=== PATIENT | female | born 1985 | race Caucasian/White ===

== ENCOUNTER 2016-05-26 05:53 | Inpatient (IN) | payer MEDICAID ==
[2016-05-26] MEDS ORDERED: Oxytocin 10 Units/1 ML SDV ONE ×2 (06:40→08:02)
[2016-05-26] MEDS ORDERED: Lactated Ringers 1,000 ML IV SCH ×2 (07:00→15:30)
[2016-05-26] MEDS ORDERED: Erythromycin Base 0.5% Ophth Oint 1 GM Tube ONE (07:09)
[2016-05-26] MEDS ORDERED: Naloxone 0.4 MG/ML SDV ONE (07:09)
[2016-05-26] MEDS ORDERED: ceFAZolin 2 GM in Premix Bag 1 BAG IV ONE (07:30)
[2016-05-26] MEDS ORDERED: ePHEDrine 50 MG/ML SDV ONE (08:02)
[2016-05-26] MEDS ORDERED: Lactated Ringers 1,000 ML ONE (08:03)
[2016-05-26] MEDS ORDERED: Ondansetron 4 MG/2 ML SDV IVPUSH PRN (09:07)
[2016-05-26] MEDS ORDERED: Naloxone 0.4 MG/ML SDV IV PRN (09:20)
[2016-05-26] MEDS: HYDROmorphone/Normal Saline 15 MG/30 ML PCA IV PRN (09:48)
[2016-05-26] MEDS: D5 1/2 NS w/ 20 mEq/L KCl 1,000 ML IV SCH ×2 (10:55→19:09)
[2016-05-26] MEDS ORDERED: diphenhydrAMINE 50 MG/ML SDV IVPUSH PRN (12:44)
[2016-05-27] MEDS: HYDROmorphone/Normal Saline 15 MG/30 ML PCA IV PRN (01:37)
[2016-05-27] MEDS: D5 1/2 NS w/ 20 mEq/L KCl 1,000 ML IV SCH (03:14)
--- NOTE | 2016-05-27 05:24 | PCM.SURGPN ---
- General Info Date of Service: 05/27/16 Date of Surgery/Procedure: 05/26/16 POD#: 1 Post-Op Diagnosis: section Admission Diagnosis/Problem: section Functional Status: Reports: pain controlled, tolerating diet, ambulating, urinating (Sewell), incentive spirometry - Review of Systems General: Reports: No Symptoms HEENT: Reports: no symptoms Pulmonary: Reports: no symptoms Cardiovascular: Reports: No Symptoms Gastrointestinal: Reports: Other (Had some nausea yesterday morning, none since. Tolerating clear liquid diet and would like regular food. ) Genitourinary: Reports: no symptoms Musculoskeletal: Reports: no symptoms Skin: Reports: no symptoms Neurological: Reports: No Symptoms Psychiatric: Reports: no symptoms - Patient Data Vitals - most recent: Last Vital Signs Temp 98.4 F 05/27/16 02:09 Pulse 72 05/27/16 02:09 Resp 18 05/27/16 02:09 BP 108/81 05/27/16 02:09 Pulse Ox 96 05/27/16 02:09 Weight - most recent: 189 lb 3.2 oz I&O - last 24 hours: Intake & Output 05/26/16 05/26/16 05/27/16 14:59 22:59 06:59 Intake Total 1429 1334 Output Total 511 851 1397 Balance -300 679 -766 Lab Results last 24 hrs: Laboratory Results - last 24 hr 05/26/16 05/26/16 05/26/16 Range/Units 06:15 06:15 06:15 WBC 5.8 (4.5-11.0) K/uL RBC 4.14 (3.30-5.50) M/uL Hgb 11.7 L (12.0-15.0) g/dL Hct 34.9 L (36.0-48.0) % MCV 84 (80-98) fL MCH 28 (27-31) pg MCHC 34 (32-36) % Plt Count 187 (150-400) K/uL Sodium (140-148) mmol/L Potassium 4.0 (3.6-5.2) mmol/L Chloride (100-108) mmol/L Carbon Dioxide (21-32) mmol/L Anion Gap (5.0-14.0) mmol/L BUN (7-18) mg/dL Creatinine (0.6-1.0) mg/dL Est Cr Clr Drug Dosing mL/min Estimated GFR (MDRD) (>60) Glucose (74-106) mg/dL Calcium (8.5-10.1) mg/dL Blood Type A POSITIVE Gel Antibody Screen Negative 05/26/16 05/27/16 05/27/16 Range/Units 16:05 04:45 04:45 WBC 11.7 H 7.4 (4.5-11.0) K/uL RBC 3.67 3.48 (3.30-5.50) M/uL Hgb 10.2 L 9.6 L (12.0-15.0) g/dL Hct 31.0 L 29.7 L (36.0-48.0) % MCV 85 85 (80-98) fL MCH 28 28 (27-31) pg MCHC 33 32 (32-36) % Plt Count 160 155 (150-400) K/uL Sodium 137 L (140-148) mmol/L Potassium 4.1 (3.6-5.2) mmol/L Chloride 106 (100-108) mmol/L Carbon Dioxide 24 (21-32) mmol/L Anion Gap 11.1 (5.0-14.0) mmol/L BUN 3 L (7-18) mg/dL Creatinine 0.6 (0.6-1.0) mg/dL Est Cr Clr Drug Dosing 124.49 mL/min Estimated GFR (MDRD) > 60 (>60) Glucose 91 (74-106) mg/dL Calcium 7.6 L (8.5-10.1) mg/dL Blood Type Gel Antibody Screen Med Orders - Current: Current Medications Diphenhydramine HCl (Benadryl) 25 - 50 mg IVPUSH Q4H PRN PRN Reason: Itching Last Admin: 05/26/16 13:11 Dose: 50 mg Hydromorphone HCl (Dilaudid Silk Hanger 15 Mg In Ns 30 Ml) 0 mg IV ASDIRECTED PRN; Protocol PRN Reason: SALES AND MARKETING VICE PRESIDENT PAIN CONTROL Last Admin: 05/27/16 01:37 Dose: 15 mg Potassium Chloride/Dextrose/Sod Cl (D5 1/2 Ns W/ 20 Meq/L Kcl) 1,000 mls @ 125 mls/hr IV ASDIRECTED BRIAN Last Admin: 05/27/16 03:14 Dose: 125 mls/hr Naloxone HCl (Narcan) 0.1 mg IV ASDIRECTED PRN PRN Reason: decreased respiratory rate Ondansetron HCl (Zofran) 4 mg IVPUSH Q6H PRN PRN Reason: Nausea/Vomiting Last Admin: 05/26/16 10:30 Dose: 4 mg Discontinued Medications Ephedrine Sulfate (Ephedrine Sulfate) Confirm Administered Dose 50 mg .ROUTE .STK-MED ONE Stop: 05/26/16 08:03 Erythromycin (Erythromycin 0.5% Ophth Oint) Confirm Administered Dose 1 gm .ROUTE .STK-MED ONE Stop: 05/26/16 07:10 Last Admin: 05/26/16 10:21 Dose: Not Given Lactated Ringer's (Ringers, Lactated) 1,000 mls @ 0 mls/hr IV ASDIRECTED BRIAN PRN Reason: KVO Lactated Ringer's (Ringers, Lactated) 1,000 mls @ 999 mls/hr IV ASDIRECTED [facility] Last Admin: 05/26/16 07:07 Dose: 999 mls/hr Cefazolin Sodium/Dextrose 2 gm (/ Premix) 50 mls @ 100 mls/hr IV ONETIME ONE Stop: 05/26/16 07:59 Last Admin: 05/26/16 07:34 Dose: 100 mls/hr Lactated Ringer's (Ringers, Lactated) Confirm Administered Dose 1,000 mls @ as directed .ROUTE .STK-MED ONE Stop: 05/26/16 08:04 Naloxone HCl (Narcan) Confirm Administered Dose 0.4 mg .ROUTE .STK-MED ONE Stop: 05/26/16 07:10 Last Admin: 05/26/16 10:21 Dose: Not Given Oxytocin (Pitocin) Confirm Administered Dose 10 unit .ROUTE .STK-MED ONE Stop: 05/26/16 06:41 Last Admin: 05/26/16 08:32 Dose: 10 unit Oxytocin (Pitocin) Confirm Administered Dose 10 unit .ROUTE .STK-MED ONE Stop: 05/26/16 08:03 Phytonadione (Aquamephyton) Confirm Administered Dose 1 mg .ROUTE .STK-MED ONE Stop: 05/26/16 07:10 Last Admin: 05/26/16 10:21 Dose: Not Given - Exam Wound/Incisions: healing well, no drainage Quality Assessment: urine catheter, DVT prophylaxis General: alert, oriented, cooperative, no acute distress Lungs: Clear to auscultation, Normal respiratory effort Cardiovascular: Regular Rate, Regular Rhythm Abdomen: bowel sounds present, soft, no tenderness, no distension Extremities: no edema Skin: warm, dry, intact Neurological: no new focal deficit Psy/Mental Status: alert, normal affect, normal mood - Problem List & Annotations (1) section SNOMED Code(s): 33675085 - section Status: Acute Current Visit: Yes - Problem List Review Problem List Initiated/Reviewed/Updated: Yes - My Orders Last 24 Hours: Active Orders 24 hr Category Date Time Status Patient Status [ADT] Routine ADT 05/26/16 09:07 Active Ambulate [RC] ASDIRECTED Care 05/26/16 09:07 Active Ambulate [RC] PER UNIT ROUTINE Care 05/26/16 09:07 Active Antiembolic Devices [RC] .Routine Care 05/26/16 09:10 Active Communication Order [RC] ROUTINE Care 05/26/16 09:14 Active DC Sewell Catheter [Urinary Catheter Removal] [RC] Per Care 05/27/16 05:20 Ordered Unit Routine Intake and Output [RC] Q4HR Care 05/26/16 09:09 Active Notify Provider Intake and Out [RC] PRN Care 05/26/16 09:09 Active Notify Provider Vital Signs [RC] PRN Care 05/26/16 09:09 Active Oxygen Therapy [RC] PRN Care 05/26/16 09:07 Active Pulse Oximetry [RC] CONTINUOUS Care 05/26/16 09:10 Active RT Incentive Spirometry [RC] ASDIRECTED Care 05/26/16 06:15 Active Up With Assistance [RC] ASDIRECTED Care 05/26/16 09:07 Active Up to Chair [RC] ASDIRECTED Care 05/26/16 09:07 Active VTE/DVT Education [RC] Click to Edit Care 05/26/16 09:10 Active Vital Signs [RC] PER UNIT ROUTINE Care 05/26/16 09:07 Active Respiratory Care Assess and Treatment [CONS] Routine Cons 05/26/16 09:07 Active Regular Diet [DIET] Diet 05/27/16 Breakfast Ordered D5 1/2 NS w/ 20 mEq/L KCl 1,000 ml Med 05/26/16 09:15 Active IV ASDIRECTED D5 1/2 NS w/ 20 mEq/L KCl 1,000 ml Med 05/27/16 05:30 Ordered IV ASDIRECTED HYDROmorphone/Normal Saline [Dilaudid SALES AND MARKETING VICE PRESIDENT 15 MG in NS Med 05/26/16 09:20 Active 30 ML] 0 mg IV ASDIRECTED PRN Naloxone [Narcan] Med 05/26/16 09:20 Active 0.1 mg IV ASDIRECTED PRN Ondansetron [Zofran] Med 05/26/16 09:07 Active 4 mg IVPUSH Q6H PRN diphenhydrAMINE [Benadryl] Med 05/26/16 12:44 Active 25 - 50 mg IVPUSH Q4H PRN Abdominal Binder [OM.PC] Per Unit Routine Oth 05/26/16 09:08 Ordered DVT/VTE Prophylaxis Reflex [OM.PC] Per Unit Routine Oth 05/26/16 09:10 Ordered SCD [Sequential Compression Device] [OM.PC] Routine Oth 05/26/16 06:15 Ordered Sequential Compression Device [OM.PC] Routine Oth 05/26/16 09:07 Ordered Resuscitation Status Routine Resus Stat 05/26/16 09:07 Ordered Medication Orders Diphenhydramine HCl (Benadryl) 25 - 50 mg IVPUSH Q4H PRN PRN Reason: Itching Last Admin: 05/26/16 13:11 Dose: 50 mg Hydromorphone HCl (Dilaudid Silk Hanger 15 Mg In Ns 30 Ml) 0 mg IV ASDIRECTED PRN; Protocol PRN Reason: SALES AND MARKETING VICE PRESIDENT PAIN CONTROL Last Admin: 05/27/16 01:37 Dose: 15 mg Admin: 05/26/16 09:48 Dose: 15 mg Potassium Chloride/Dextrose/Sod Cl (D5 1/2 Ns W/ 20 Meq/L Kcl) 1,000 mls @ 125 mls/hr IV ASDIRECTED BRIAN Last Admin: 05/27/16 03:14 Dose: 125 mls/hr Infusion: 05/27/16 03:09 Dose: 125 mls/hr Admin: 05/26/16 19:09 Dose: 125 mls/hr Infusion: 05/26/16 18:55 Dose: 125 mls/hr Admin: 05/26/16 10:55 Dose: 125 mls/hr Naloxone HCl (Narcan) 0.1 mg IV ASDIRECTED PRN PRN Reason: decreased respiratory rate Ondansetron HCl (Zofran) 4 mg IVPUSH Q6H PRN PRN Reason: Nausea/Vomiting Last Admin: 05/26/16 10:30 Dose: 4 mg - Assessment Assessment (Free Text/Narrative):: Doing well. Hgb down a little. - Plan Plan (Free Text/Narrative):: D/C Sewell, advance diet, decrease IV rate.
[2016-05-27] MEDS ORDERED: D5 1/2 NS w/ 20 mEq/L KCl 1,000 ML IV SCH (05:30)
--- NOTE | 2016-05-27 08:17 | OR ---
DATE OF PROCEDURE: 05/26/2016 PREOPERATIVE DIAGNOSES: Term , prior section. POSTOPERATIVE DIAGNOSES: Term , prior section, and nuchal cord. PROCEDURE: Repeat section delivering a baby boy with scores of 8 and 9 and with a three vessel cord. HOSPITAL ACCOUNT MANAGER: Katherine Marino CNM. Per [employer]G standards of care guidelines, this procedure requires a assistant professor of life sciences. ANESTHESIA: Subarachnoid block. INDICATIONS: This 30-year-old white female is with her fifth child. The previous four were delivered by section. Her due date is May 30. She is admitted for a repeat section. I counseled her for surgery including risks and alternatives and she gave her informed consent to proceed. DESCRIPTION OF OPERATION: After adequate spinal anesthesia was obtained, a Sewell catheter was placed and a wedge was placed under her right flank. Her abdomen was prepped and draped in the usual sterile fashion. Time-out was held. An incision was made through her existing Pfannenstiel scar. This was carried deep using Bovie cautery to the fascia. The fascia was incised transversely. Upper and lower subfascial flaps were developed. The muscles in the midline were . The peritoneum was elevated and incised. The peritoneal and muscle incisions were made to the length of the flaps using Bovie cautery while protecting underlying structures. The bladder flap was dissected free from the lower uterine segment. A transverse lower uterine segment incision was made releasing normal-appearing amniotic fluid. The child's head was delivered. It was noted that there was a nuchal cord. This was reduced. The child's body was delivered. This was found to be a baby boy, ultimately shown to have scores of 8 and 9. The cord was doubly clamped and divided and Katherine Marino attended to the child. Cord blood was collected. The uterus was delivered up onto the anterior abdominal wall. The placenta was delivered. It appeared to have a 3-vessel cord. Residual membranes were removed. IV Pitocin was given by the anesthesia service and 10 units of Pitocin was directly injected into the uterine body. The transverse lower uterine segment incision was closed with a running locking stitch of #1 Vicryl. A second running locking stitch of #1 Vicryl was placed over the first to further bolster the closure. The retrouterine space was irrigated and suctioned dry. The bladder flap was re-attached up over the lower uterine segment with a running stitch of #1 Vicryl. The serosa was disrupted a little which was then repaired with #1 Vicryl with a horizontal mattress stitch. The uterus was then delivered back into the abdominal cavity. The muscles and peritoneum in the midline were closed with a running stitch of #2 Vicryl. The incision was irrigated and suctioned dry. The fascia was closed with a #2 Vicryl running stitch. The incision was again irrigated and suctioned dry. Vicryl 4-0 was used in a subcuticular stitch to approximate the skin. Dermabond was applied. The patient tolerated the procedure well, was brought from the operating room in good condition. Albert Thomas MD /[id number] MTDD
[2016-05-27] MEDS ORDERED: Ondansetron 4 MG Tab.DIS PO PRN (09:16)
[2016-05-27] MEDS ORDERED: Ibuprofen 600 MG Tab PO PRN (09:18)
[2016-05-27] MEDS: Acetaminophen/HYDROcodone 325-5 MG Tab PO PRN ×4 (09:33→21:34)
[2016-05-27] MEDS: Docusate Sodium 100 MG Cap PO PRN (13:55)
[2016-05-28] MEDS: Acetaminophen/HYDROcodone 325-5 MG Tab PO PRN ×4 (02:10→14:46)
--- NOTE | 2016-05-28 10:29 | PCM.SURGPN ---
- General Info Date of Service: 05/28/16 Date of Surgery/Procedure: 05/26/16 POD#: 2 Post-Op Diagnosis: section Admission Diagnosis/Problem: section Functional Status: Reports: pain controlled, tolerating diet, ambulating, urinating, incentive spirometry - Review of Systems General: Reports: No Symptoms HEENT: Reports: no symptoms Pulmonary: Reports: no symptoms Cardiovascular: Reports: No Symptoms Gastrointestinal: Reports: No symptoms. Denies: Flatus, Nausea, Vomiting Genitourinary: Reports: no symptoms Musculoskeletal: Reports: no symptoms Skin: Reports: no symptoms Neurological: Reports: No Symptoms Psychiatric: Reports: no symptoms - Patient Data Vitals - most recent: Last Vital Signs Temp 97.5 F 05/28/16 02:17 Pulse 79 05/28/16 02:17 Resp 20 05/28/16 02:17 BP 97/67 05/28/16 02:17 Pulse Ox 98 05/27/16 17:26 Weight - most recent: 189 lb 3.2 oz I&O - last 24 hours: Intake & Output 05/27/16 05/28/16 05/28/16 22:59 06:59 14:59 Intake Total 600 Output Total 900 Balance -900 600 Lab Results last 24 hrs: Laboratory Results - last 24 hr 05/28/16 Range/Units 05:11 WBC 6.6 (4.5-11.0) K/uL RBC 3.43 (3.30-5.50) M/uL Hgb 9.7 L (12.0-15.0) g/dL Hct 29.4 L (36.0-48.0) % MCV 86 (80-98) fL MCH 28 (27-31) pg MCHC 33 (32-36) % Plt Count 170 (150-400) K/uL Med Orders - Current: Current Medications Hydrocodone Bitart/Acetaminophen ([place] 325-5 Mg) 1 - 2 tab PO Q4H PRN PRN Reason: Pain Last Admin: 05/28/16 10:15 Dose: 2 tab Diphenhydramine HCl (Benadryl) 25 - 50 mg IVPUSH Q4H PRN PRN Reason: Itching Last Admin: 05/26/16 13:11 Dose: 50 mg Docusate Sodium (Colace) 100 mg PO BID PRN PRN Reason: Constipation Last Admin: 05/27/16 13:55 Dose: 100 mg Ibuprofen (Motrin) 600 mg PO Q6H PRN PRN Reason: Pain Last Admin: 05/27/16 15:17 Dose: 600 mg Ondansetron HCl (Zofran) 4 mg IVPUSH Q6H PRN PRN Reason: Nausea/Vomiting Last Admin: 05/26/16 10:30 Dose: 4 mg Ondansetron HCl (Zofran Odt) 4 mg PO Q4H PRN PRN Reason: Nausea/Vomiting Discontinued Medications Ephedrine Sulfate (Ephedrine Sulfate) Confirm Administered Dose 50 mg .ROUTE .STK-MED ONE Stop: 05/26/16 08:03 Erythromycin (Erythromycin 0.5% Ophth Oint) Confirm Administered Dose 1 gm .ROUTE .STK-MED ONE Stop: 05/26/16 07:10 Last Admin: 05/26/16 10:21 Dose: Not Given Hydromorphone HCl (Dilaudid Gearcase Assembler 15 Mg In Ns 30 Ml) 0 mg IV ASDIRECTED PRN; Protocol PRN Reason: CONTACT LENS BLOCKER PAIN CONTROL Last Admin: 05/27/16 01:37 Dose: 15 mg Lactated Ringer's (Ringers, Lactated) 1,000 mls @ 0 mls/hr IV ASDIRECTED [facility] PRN Reason: KVO Lactated Ringer's (Ringers, Lactated) 1,000 mls @ 999 mls/hr IV ASDIRECTED [facility] Last Admin: 05/26/16 07:07 Dose: 999 mls/hr Cefazolin Sodium/Dextrose 2 gm (/ Premix) 50 mls @ 100 mls/hr IV ONETIME ONE Stop: 05/26/16 07:59 Last Admin: 05/26/16 07:34 Dose: 100 mls/hr Lactated Ringer's (Ringers, Lactated) Confirm Administered Dose 1,000 mls @ as directed .ROUTE .ST-MED ONE Stop: 05/26/16 08:04 Potassium Chloride/Dextrose/Sod Cl (D5 1/2 Ns W/ 20 Meq/L Kcl) 1,000 mls @ 125 mls/hr IV ASDIRECTED [facility] Last Admin: 05/27/16 03:14 Dose: 125 mls/hr Potassium Chloride/Dextrose/Sod Cl (D5 1/2 Ns W/ 20 Meq/L Kcl) 1,000 mls @ 50 mls/hr IV ASDIRECTED BRIAN Naloxone HCl (Narcan) Confirm Administered Dose 0.4 mg .ROUTE .STK-MED ONE Stop: 05/26/16 07:10 Last Admin: 05/26/16 10:21 Dose: Not Given Naloxone HCl (Narcan) 0.1 mg IV ASDIRECTED PRN PRN Reason: decreased respiratory rate Oxytocin (Pitocin) Confirm Administered Dose 10 unit .ROUTE .STK-MED ONE Stop: 05/26/16 06:41 Last Admin: 05/26/16 08:32 Dose: 10 unit Oxytocin (Pitocin) Confirm Administered Dose 10 unit .ROUTE .STK-MED ONE Stop: 05/26/16 08:03 Phytonadione (Aquamephyton) Confirm Administered Dose 1 mg .ROUTE .STK-MED ONE Stop: 05/26/16 07:10 Last Admin: 05/26/16 10:21 Dose: Not Given - Exam Wound/Incisions: healing well, no drainage General: alert, oriented, cooperative, no acute distress Lungs: Clear to auscultation, Normal respiratory effort Cardiovascular: Regular Rate, Regular Rhythm Abdomen: bowel sounds present (But hypoactive.), soft, no tenderness, no distension Extremities: no edema Skin: warm, dry, intact Neurological: no new focal deficit Psy/Mental Status: alert, normal affect, normal mood - Problem List & Annotations (1) section SNOMED Code(s): 51398526 - section Status: Acute Current Visit: Yes - Problem List Review Problem List Initiated/Reviewed/Updated: Yes - My Orders Last 24 Hours: Active Orders 24 hr Category Date Time Status Docusate Sodium [Colace] Med 05/27/16 13:28 Active 100 mg PO BID PRN Medication Orders Hydrocodone Bitart/Acetaminophen ([place] 325-5 Mg) 1 - 2 tab PO Q4H PRN PRN Reason: Pain Last Admin: 05/28/16 10:15 Dose: 2 tab Admin: 05/28/16 06:10 Dose: 2 tab Admin: 05/28/16 02:10 Dose: 2 tab Admin: 05/27/16 21:34 Dose: 2 tab Admin: 05/27/16 17:24 Dose: 2 tab Admin: 05/27/16 13:23 Dose: 2 tab Admin: 05/27/16 09:33 Dose: 2 tab Diphenhydramine HCl (Benadryl) 25 - 50 mg IVPUSH Q4H PRN PRN Reason: Itching Last Admin: 05/26/16 13:11 Dose: 50 mg Docusate Sodium (Colace) 100 mg PO BID PRN PRN Reason: Constipation Last Admin: 05/27/16 13:55 Dose: 100 mg Ibuprofen (Motrin) 600 mg PO Q6H PRN PRN Reason: Pain Last Admin: 05/27/16 15:17 Dose: 600 mg Ondansetron HCl (Zofran) 4 mg IVPUSH Q6H PRN PRN Reason: Nausea/Vomiting Last Admin: 05/26/16 10:30 Dose: 4 mg Ondansetron HCl (Zofran Odt) 4 mg PO Q4H PRN PRN Reason: Nausea/Vomiting - Assessment Assessment (Free Text/Narrative):: Doing well. Hgb is stable. She is eating well. No flatus nor BM, but denies nausea or vomiting. Started taking Colace. - Plan Plan (Free Text/Narrative):: No change.
[2016-05-28] MEDS: Docusate Sodium 100 MG Cap PO PRN (11:16)
[2016-05-28 12:24] VITALS: BP 99/71
--- NOTE | 2016-05-28 17:13 | PCM.DCSUM1 ---
Discharge Summary - Hospital Course Free Text/Narrative:: This 30 year old white female was admitted on May 26, 2016 for a repeat section at term. This was her fifth section. A boy with APGARS of 8 and 9 was delivered. Her post operative course was unremarkable. Her Hgb fell to 9.7 from 11. 7 and is stable. She is eating well but with no flatus nor BM. She wants to go home. She promises to return if she has problems. She is discharged at this time in good condition. - Discharge Data Discharge Date: 05/28/16 Discharge Disposition: Home, Self-Care 01 Condition: Good - Discharge Diagnosis/Problem(s) (1) section SNOMED Code(s): 19081600 - section Status: Acute Current Visit: Yes - Patient Summary/Data Operative Procedure(s) Performed: Repeat section. Consults: Consultations 05/26/16 09:07 Respiratory Care Assess and Treatment [CONS] Routine Comment: Physician Instructions: Hospital Course: See above narrative. - Patient Instructions Diet: Usual Diet as Tolerated, Regular Diet as Tolerated Activity: No Lifting Over 10 Pounds, No Strenuous Activities Activity, Other: For six weeks. Driving, Other: Do not drive while taking narcotin pain medication. Showering/Bathing: May Shower Notify Provider of: Fever, Increased Pain, Swelling and Redness, Nausea and/or Vomiting Other/Special Instructions: Follow-up appointment for scheduled with Dr Thomas on 06/04/16 at 1:00pm. 6-week follow-up scheduled with Alycia Marino on 07/09/16 at 9:30am. - Discharge Plan Prescriptions/Med Rec: Acetaminophen/HYDROcodone [[place] 325-5 MG] 1 - 2 tab PO Q4H PRN #30 tablet PRN Reason: Abdominal Pain Home Medications: Home Meds #57/Iron/FA/DSS/DHA [Tl-Select Dha Softgel] 1 each PO 02/02/13 [History ] Acetaminophen/HYDROcodone [[place] 325-5 MG] 1 - 2 tab PO Q4H PRN #30 tablet 05/28 [Rx] Docusate Sodium [Colace] 100 mg PO BID #50 cap 05/28/16 [Rx] Referrals: Albert Thomas MD [Physician] - (In [place] in about two weeks.) Alycia Marino CNM [Primary Care Provider] - (In about two weeks and in six to eight weeks in [facility] with child. ) - Discharge Summary/Plan Comment DC Time >30 min.: Yes - Patient Data Vitals - Most Recent: Last Vital Signs Temp 97.7 F 05/28/16 11:15 Pulse 82 05/28/16 11:15 Resp 18 05/28/16 11:15 BP 99/71 05/28/16 11:15 Pulse Ox 96 05/28/16 11:15 Weight - Most Recent: 189 lb 3.2 oz I&O - Last 24 hours: Intake & Output 05/28/16 05/28/16 05/28/16 06:59 14:59 22:59 Intake Total 600 940 Balance 600 940 Lab Results - Last 24 hrs: Laboratory Results - last 24 hr 05/28/16 Range/Units 05:11 WBC 6.6 (4.5-11.0) K/uL RBC 3.43 (3.30-5.50) M/uL Hgb 9.7 L (12.0-15.0) g/dL Hct 29.4 L (36.0-48.0) % MCV 86 (80-98) fL MCH 28 (27-31) pg MCHC 33 (32-36) % Plt Count 170 (150-400) K/uL Med Orders - Current: Current Medications Hydrocodone Bitart/Acetaminophen ([place] 325-5 Mg) 1 - 2 tab PO Q4H PRN PRN Reason: Pain Last Admin: 05/28/16 14:46 Dose: 2 tab Diphenhydramine HCl (Benadryl) 25 - 50 mg IVPUSH Q4H PRN PRN Reason: Itching Last Admin: 05/26/16 13:11 Dose: 50 mg Docusate Sodium (Colace) 100 mg PO BID PRN PRN Reason: Constipation Last Admin: 05/28/16 11:16 Dose: 100 mg Ibuprofen (Motrin) 600 mg PO Q6H PRN PRN Reason: Pain Last Admin: 05/27/16 15:17 Dose: 600 mg Ondansetron HCl (Zofran) 4 mg IVPUSH Q6H PRN PRN Reason: Nausea/Vomiting Last Admin: 05/26/16 10:30 Dose: 4 mg Ondansetron HCl (Zofran Odt) 4 mg PO Q4H PRN PRN Reason: Nausea/Vomiting Discontinued Medications Ephedrine Sulfate (Ephedrine Sulfate) Confirm Administered Dose 50 mg .ROUTE .STK-MED ONE Stop: 05/26/16 08:03 Erythromycin (Erythromycin 0.5% Ophth Oint) Confirm Administered Dose 1 gm .ROUTE .STK-MED ONE Stop: 05/26/16 07:10 Last Admin: 05/26/16 10:21 Dose: Not Given Hydromorphone HCl (Dilaudid Crust Sorter 15 Mg In Ns 30 Ml) 0 mg IV ASDIRECTED PRN; Protocol PRN Reason: CASH CONTROL SPECIALIST PAIN CONTROL Last Admin: 05/27/16 01:37 Dose: 15 mg Lactated Ringer's (Ringers, Lactated) 1,000 mls @ 0 mls/hr IV ASDIRECTED [facility]RIAN PRN Reason: KVO Lactated Ringer's (Ringers, Lactated) 1,000 mls @ 999 mls/hr IV ASDIRECTED [facility]RIAN Last Admin: 05/26/16 07:07 Dose: 999 mls/hr Cefazolin Sodium/Dextrose 2 gm (/ Premix) 50 mls @ 100 mls/hr IV ONETIME ONE Stop: 05/26/16 07:59 Last Admin: 05/26/16 07:34 Dose: 100 mls/hr Lactated Ringer's (Ringers, Lactated) Confirm Administered Dose 1,000 mls @ as directed .ROUTE .STK-MED ONE Stop: 05/26/16 08:04 Potassium Chloride/Dextrose/Sod Cl (D5 1/2 Ns W/ 20 Meq/L Kcl) 1,000 mls @ 125 mls/hr IV ASDIRECTED [facility]RIAN Last Admin: 05/27/16 03:14 Dose: 125 mls/hr Potassium Chloride/Dextrose/Sod Cl (D5 1/2 Ns W/ 20 Meq/L Kcl) 1,000 mls @ 50 mls/hr IV ASDIRECTED [facility]RIAN Naloxone HCl (Narcan) Confirm Administered Dose 0.4 mg .ROUTE .STK-MED ONE Stop: 05/26/16 07:10 Last Admin: 05/26/16 10:21 Dose: Not Given Naloxone HCl (Narcan) 0.1 mg IV ASDIRECTED PRN PRN Reason: decreased respiratory rate Oxytocin (Pitocin) Confirm Administered Dose 10 unit .ROUTE .STK-MED ONE Stop: 05/26/16 06:41 Last Admin: 05/26/16 08:32 Dose: 10 unit Oxytocin (Pitocin) Confirm Administered Dose 10 unit .ROUTE .STK-MED ONE Stop: 05/26/16 08:03 Phytonadione (Aquamephyton) Confirm Administered Dose 1 mg .ROUTE .STK-MED ONE Stop: 05/26/16 07:10 Last Admin: 05/26/16 10:21 Dose: Not Given *Q Meaningful Use (DIS) - VTE *Q VTE Criteria *Q: - Stroke *Q Stroke Criteria *Q: - AMI *Q AMI Criteria *Q:
== END 2016-05-28 17:55 | disposition home or self-care (01) | DRG 540 ==
LOC: JP.SDS 05:53 → JP.MS 08:13
PROVIDERS: ADMIT Nurse Practitioner Family; ATTEND Surgery
PROC: 10D00Z1 Extraction of Products of Conception, Low, Open Approach (ICD-10-PCS; principal; 2016-05-26)
DX: O34.211 Maternal care for low transverse scar from previous cesarean delivery (principal); N85.8 Other specified noninflammatory disorders of uterus; O69.81X0 Labor and delivery complicated by cord around neck, without compression, not applicable or unspecified; Z3A.40 40 weeks gestation of pregnancy; Z37.0 Single live birth
CPT/HCPCS: 36415; 80048; 84132; 85027; 86850; 86900; 86901; 88307; 94762; A9270-GY; J0690; J1170; J1200; J2405; J2590; J3480; J7120